=== PATIENT | female | born 1955 | race Caucasian/White ===

== ENCOUNTER 2024-12-03 14:30 | Outpatient (CLI) | payer BC ==
[2024-12-03 15:04] LABS: MEAN PLATELET VOLUME 6.9 FL (7.4-10.4); RED CELL DISTRIBUTION WIDTH 13.1 % (11.5-14.5)
== END 2024-12-03 23:59 | disposition home or self-care (01) ==
LOC: RAD 14:30
PROVIDERS: ATTEND Physician Assistant
DX: D72.819 Decreased white blood cell count, unspecified (principal)
CPT/HCPCS: 85025